=== PATIENT | male | born 1970 | race Caucasian/White ===

== ENCOUNTER 2017-08-25 09:30 | Emergency (ER) | payer OTHER ==
[~2017-08-25] VITALS: Ht 180.3 cm; Wt 135.2 kg
[~2017-08-25 09:30] MED LIST: CEPHALEXIN500 MG PO; CLINDAMYCIN HC150 MG PO; HYDROCODON-ACE1 EA10 PO; PERCOCET 5-3251 EACH PO
[2017-08-25] MEDS ORDERED: LIPITOR10 MG PO (09:46)
== END 2017-08-25 09:54 | disposition home or self-care (01) ==
LOC: ED 09:30
DX: H57.12 Ocular pain, left eye (principal); Z00.8 Encounter for other general examination

== ENCOUNTER 2019-01-15 11:50 | Inpatient (IN) | payer OTHER ==
[~2019-01-15] VITALS: Ht 180.3 cm; Wt 135.2 kg
--- OUTSIDE RECORDS SUMMARY | ~2019-01-15 | XMS | Clinical Summary ---
Demographics + + + | Address | [address] | | | [place] [address] | + + + | Home Phone | | + + + | Preferred Language | Unknown | + + + | Marital Status | Unknown | + + + | Sabianist Affiliation | Unknown | + + + | Race | Unknown | + + + | Ethnic Group | Unknown | + + + Author + + + | Author | [facility] [facility] | + + + | Organization | [facility] [facility] | + + + | Address | Unknown | + + + | Phone | Unavailable | + + + Support +--------+ +---------+ + | Name | Relationship | Address | Phone | +--------+ +---------+ + | No,One | ECON | Unknown | | +--------+ +---------+ + Care Team Providers + +------+ + | Care Ghost Writer Name | Role | Phone | + +------+ + | Allen Burnham MD | PP | | + +------+ + Allergies Not on File Current Medications Not on file Active Problems Not on file Social History + +-------+ +--------+------+ | Tobacco Use | Types | Packs/Day | Years | Date | | | | | Used | | + +-------+ +--------+------+ | Never Assessed | | | | | + +-------+ +--------+------+ + + + | Sex Assigned at | Date Recorded | | | | + + + | Not on file | | + + + Plan of Treatment Not on file Results Not on filefrom Last 3 Months Insurance + +--------+ +------+-------+ + | Payer | Benefi | Subscriber | Type | Phone | Address | | | t Plan | ID | | | | | | / | | | | | | | Group | | | | | + +--------+ +------+-------+ + | [employer] | ODS | [id number] | | | | | | HEALTH | | | | | | | PLAN | | | | | + +--------+ +------+-------+ + | MEDICAID | [place] | [id number] | | | [address] | | | N | | | | [place], [place] | | | [place] | | | | [phone] | | | SIGNWRITER | | | | | + +--------+ +------+-------+ + + +--------+ +--------+ + + | Guarantor Name | Accoun | Relation to | Date | Phone | Billing Address | | | t Type | Patient | of | | | | | | | | | | + +--------+ +--------+ + + | MARIXA DAVIS | Person | Self [birth year] | Home: | [address] | | | al/[place] | | 1971 | [phone] | [place] [address] | | | javon | | | [phone] | | + +--------+ +--------+ + +"
--- OUTSIDE RECORDS SUMMARY | ~2019-01-15 | XMS | Clinical Summary ---
Demographics + + + | Address | [address] | | | [place] [address] | + + + | Home Phone | | + + + | Preferred Language | Unknown | + + + | Marital Status | Unknown | + + + | Anabaptist Affiliation | Unknown | + + + | Race | Unknown | + + + | Ethnic Group | Unknown | + + + Author + + + | Author | [facility] [facility] [facility] | + + + | Organization | [facility] | + + + | Address | Unknown | + + + | Phone | Unavailable | + + + Support +--------+ +---------+ + | Name | Relationship | Address | Phone | +--------+ +---------+ + | No,One | ECON | Unknown | | +--------+ +---------+ + Care Team Providers + +------+ + | Care Data Center Engineer Name | Role | Phone | + [...] | [employer] | ODS | [id number] | | | | | | HEALTH | | | | | | | PLAN | | | | | + +--------+ +------+-------+ + | MEDICAID | [place] | [id number] | | | [address] | | | N | | | | [place], [place] | | | [place] | | | | [phone] | | | [employer] | | | | | + +--------+ [...] | 1971 | [phone] | [place] [address] | | | [place] | | | [phone] | | + +--------+ +--------+ + +"
[~2019-01-15 11:50] MED LIST changes: +LIPITOR10 MG PO
[2019-01-15] MEDS ORDERED: HYDROCHLOROTH12.5 MG PO (16:10)
--- NOTE | 2019-01-15 17:11 | NUR ---
Pt reports nausea, no current order for antiemetic. Voicemail left with Dr. Manzo as there was no answer. emisis bag in reach of pt, no vomiting at this time. call light and h20 in reach.
--- NOTE | 2019-01-15 17:27 | NUR ---
CALL PLACED TO ED, SPOKE WITH RUSSEL ESPAÑA WHO AGREES TO NOTIFY DR BLANDON OF NEED FOR ED BRIDGE ORDER FOR PT'S CURRENT NAUSEA.
--- NOTE | 2019-01-15 17:45 | NUR ---
PT REPORTS NASUEA HAS SUBSIDED AND ONLY CAME ON AFTER TAKING A BITE OF PINEAPPLE. . CALL LIGHT AND H2O IN REACH.
--- NOTE | 2019-01-15 18:26 | NUR ---
pt reports persisting nausea with no vomiting. PRN iv zofran 8mg administered call light and h20 in reach. Pt denies pain. Warm pack provided. Pt verbalized understanding of NPO status after miidnight.
--- NOTE | 2019-01-15 19:00 | NUR ---
CHARGE ROUNDING DONE. PATIENT APPEARS TO BE RESTING COMFORTABLY. NO NEEDS AT THIS TIME.
--- NOTE | 2019-01-15 19:31 | NUR ---
IN ROOM FOR REPORT, PT IS AWAKE IN BED AND DENIES NEEDS AT THIS TIME. CALL LIGHT IS WITHIN REACH.
--- NOTE | 2019-01-15 21:41 | NUR ---
Provided a heat pack for patient.
--- NOTE | 2019-01-15 22:20 | NUR ---
IN ROOM TO ASSESS PT AND ADMINISTER MEDICATIONS. NORCO GIVEN FOR PAIN WELL. PT REPORTS THAT HIS STOMACH "FEELS OFF" BUT DENIES NAUSEA. HE IS FLUSHED BUT AFREBRILE. RT SCROTUM/GROIN AREA IS RED AND WARM WITH A SMALL AMOUNT OF PURULENT DRAIANGE. WARM PACK IS IN PLACE AT THIS TIME. PT DENIES FURTHER NEEDS AND CALL LIGHT IS CLOSE.
--- NOTE | 2019-01-16 00:27 | NUR ---
PT IS RESTING WITH EYES CLOSED, RESPIRATIONS ARE EVEN AND NONLABORED. CALL LIGHT IS WITHIN REACH.
--- NOTE | 2019-01-16 01:00 | NUR ---
PUT NEW BAG OF IV FLUID UP AND PROVIDED WARM PACK FOR PT. HE DENIES FURTHER NEEDS. CALL LIGHT IS WITHIN REACH.
--- NOTE | 2019-01-16 01:20 | NUR ---
VITALS AND I&OS DONE AND CHARTED. INFORMED HIS RN PARAG OF NO OUTPUT FOR 0200 . BEDSIDE TABLE AND CALL LIGHT IN REACH. PT NEEDS NOTHING AT THIS TIME.
--- NOTE | 2019-01-16 02:47 | NUR ---
PT IS RESTING WITH EYES CLOSED, RESPIRATIONS ARE EVEN AND NONLABORED. CALL LIGHT IS WITHIN REACH.
--- NOTE | 2019-01-16 04:35 | NUR ---
PT IS RESTING WITH EYES CLOSED, RESPIRATIONS ARE EVEN AND NONLABORED. CALL LIGHT IS WITHIN REACH.
--- NOTE | 2019-01-16 05:51 | NUR ---
PT DENIES PAIN AT THIS TIME. ADMINISTERED ABX. NEW PAD PLACED ON GROIN WITH HEAT PAD AND PT DENIES FURTHER NEEDS. CALL LIGHT IS WITHIN REACH.
--- NOTE | 2019-01-16 07:04 | NUR ---
PT REPORTS NAUSEA BUT STATES PAIN IS UNDERCONTROL AT THIS TIME. ZOFRAN ADMINISTERED AND PT DENIES FURTHER NEEDS. CALL LIGHT IS WITHIN REACH.
--- NOTE | 2019-01-16 07:10 | NUR ---
REP[ORT RECEIVED FROM RUSSEL TUTTLE. PT RESTING ON LEFT LATERAL SIDE. CALL LIGHT IN REACH. EYES CLOSED AND RESPIRATIONS EVEN AND UNLABORED AND PT APPEARS TO BE SLEEPING COMFORTABLY.
--- NOTE | 2019-01-16 07:20 | NUR ---
PATIENT RESTING IN BED. CALL LIGHT WITHIN REACH. NO OTHER NEEDS AT THIS TIME
--- NOTE | 2019-01-16 08:12 | NUR ---
PATIENT RESTING IN BED. SETS UP BATHROOM FOR SHOWER. CALL LIGHT WITHIN REACH. NO OTHER NEEDS AT THIS TIME
--- NOTE | 2019-01-16 09:42 | NUR ---
Pt assisted up to restroom, and then on walked around nurses station. Pt tolerated well with fww and sba. Pt back to bed, assessment completed am meds were administered -see emar. Family in and verbalize willingness to learn dressing changes and were walked through dressing change process and educated on wound care. All questions answered. No concerns voiced. Call light and h20 in reach.
--- NOTE | 2019-01-16 09:44 | NUR ---
PATIENT RESTING IN BED. RN IN CHARGE IN ROOM. VITAL SIGNS AND I&O DONE. CALL LIGHT WITHIN REACH. NO OTHER NEEDS AT THIS TIME
--- NOTE | 2019-01-16 10:18 | NUR ---
Pt resting on left lateral side, assessment completed. Call light in reach. Pt denies needs/concern sand states nausea has subsided. Fresh hwp provided.
--- NOTE | 2019-01-16 11:45 | NUR ---
IN TO ASSIST DR PABON WITH WOUND IRRIGATION. PT TOLERATED WELL. CULTURES X2 SENT TO LAB. WOUND WAS IRRIGATED AND PACKED WITH STERILE GUAZE PER DR PABON WITH 4X4 GUAZE AND NETTING UNDERWEAR TO HOLD IN PLACE. PT STATES PAIN IS 3/10 TO RIGHT GROIN. ONE DOSE OF IV TORADOL ADMINISTERED IVP. NO FURTHER NEEDS/CONCERNS VOICED. CALL LIGHT AND H20 IN REACH AND MENUE PROVIDED -PT ADVANCED TO CLEAR LIQ PER .
--- NOTE | 2019-01-16 15:00 | NUR ---
ADMINISTERED SCHEDULED MEDDS. PT SLEEPING UNTIL AWOKEN FOR SCANNING. PT DENIES NEEDS.
--- NOTE | 2019-01-16 17:38 | NUR ---
PATIENT RESTING IN BED. PATIENT DID NOT VOID DURING THIS PERIOD. VITAL SIGNS AND I&O DONE.CALL LIGHT WITHIN REACH. NO OTHER NEEDS AT THIS TIME
--- NOTE | 2019-01-16 17:53 | NUR ---
Pt vomiting approx 300mls of clear brown emisis and reports releif with emisis. Phenergan 25mg administered po. Pt also reports 4/10 abd pain. pt requested and received prn po opiods -see emar. Call light and h20 in reach. Pt provided with cool wash cloth and new emisis bag no further needs/concerns voiced.
--- NOTE | 2019-01-16 18:21 | NUR ---
PT STATES "I FEEL THE SAME WHEN I FIRST GOT HERE". pT REPORTS CHILLS SWEATING, COUGHING, GENERALIZED ABD ACHING PAIN. BT'S HYPERACTIVE NONDISTENDED AND NO INCREASED PAIN TO PALPATION. PT HAS NOT VOIDED IN PAST 4HRS BUT DENIES URGE TO VOID. PT HAS LOW GRADE TEMP. PT REQUESTS CA SUPPOSITORY FOR NASUEA. DR PABON NOTIFIED OF PT'S S/SX'S AND REQUEST FOR CA ANTIEMETIC. MULTIPLE NEW TORB RECEIVED- SEE ORDERS IN [facility].
--- NOTE | 2019-01-16 20:01 | NUR ---
REPORT RECEIVED, PT AWAKE, RESTING IN BED, IV FLUIDS INFUSING PER EMAR WNL, PT STATES THAT HE IS FEELING MUCH BETTER, DENIES ANY NAUSEA AT THIS TIME, RATES HIS PAIN AT 0/10 CURRENTLY, PT AOX4, DENIES ANY NEEDS AT THIS TIME, CALL LIGHT WITHIN REACH. FALL PRECAUTIONS IN PLACE.
--- NOTE | 2019-01-16 21:19 | NUR ---
ROUNDED ON PT CHARGE. PT RESTING IN BED. CHILD NURSE DECEMBER IN ROOM. PT DENIES REQUESTS AT THIS TIME, NO COMMENTS QUESTIONS OR CONCERNS AT THIS TIME. CALL LIGHT IN REACH.
--- NOTE | 2019-01-16 22:53 | NUR ---
PT C/O 12/05 PAIN RELATED TO ABDOMEN AND SCROTUM, PT REQUESTING PRN PAIN MEDICATION, PT GIVEN PRN PAIN MEDICATION PER EMAR, PT CONTINUES TO DENY NAUSEA, IV FLUIDS/ABX INFUSING PER EMAR WNL, NO REQUESTS AT THIS TIME, CALL LIGHT WITHIN REACH. FALL PRECAUTIONS IN PLACE.
--- NOTE | 2019-01-17 | NUR ---
PO FLUIDS REMOVED FROM ROOM, PT AWAKE, RESTING IN BED, STATES THAT HE IS FEELING MUCH BETTER, DENIES ANY PAIN, DENIES ANY NAUSEA, IV FLUIDS/ABX INFUSING PER EMAR WNL, NO REQUESTS AT THIS TIME, CALL LIGHT WITHIN REACH. FALL PRECAUTIONS IN PLACE.
--- NOTE | 2019-01-17 02:30 | NUR ---
ASSESSMENT COMPLETE, SMALL AMOUNT OF BROWN/SEROUS DRAINAGE NOTED ON 4X4 BETWEEN PT'S SCROTUM AND RIGHT GROIN, PT DENIES PAIN, DENIES N/V, DENIES ANY NEEDS AT THIS TIME, IV FLUIDS INFUSING PER EMAR WNL, CALL LIGHT WITHIN REACH. FALL PRECAUTIONS IN PLACE.
--- NOTE | 2019-01-17 02:48 | NUR ---
patient requested urinal be emptied. also wanted new drainage pads.
--- NOTE | 2019-01-17 04:26 | NUR ---
PT RESTING IN BED, EYES CLOSED, BREATHS EVEN, UNLABORED, NO REQUESTS AT THIS TIME, IV FLUIDS INFUSING PER EMAR WNL, CALL LIGHT WITHIN REACH.
--- NOTE | 2019-01-17 06:02 | NUR ---
IN ROOM TO ADMIN MORNING MEDS, PT DENIES ANY C/O PAIN OR NAUSEA, PT RESTING IN BED, VSS, IV FLUIDS INFUSING PER EMAR WNL, CALL LIGHT WITHIN REACH.
--- NOTE | 2019-01-17 06:08 | NUR ---
PT AOX4 THIS SHIFT, APPROPRIATE, 1 PERSON SBA, MOSTLY INDEPENDENT IN ROOM, PT RECEIVED PRN PAIN MEDICATION X1 THIS SHIFT, NO C/O NAUSEA, NO EMESIS, REDNESS AND SWELLING IN SCROTUM HAS LESSENNED SOME THIS SHIFT, SMALL AMOUNT OF SEROUS DRAINAGE FROM SCROTUM NOTED, PT HAS BEEN NPO SINCE MIDNIGHT, TOLERATING WELL. USES CALL LIGHT APPROPRIATELY, IV FLUIDS/ABX INFUSING PER EMAR WNL. VSS.
--- NOTE | 2019-01-17 08:15 | NUR ---
PT LYING IN BED, DROWSY BUT ALERT AND ORIENTED. DENIES PAIN OR NAUSEA AT THIS TIME. RIGHT GROIN WITH MINIMAL TO NO REDNESS, INDURATION APPROX GOLF BALL SIZE. PT REPORTS MUCH IMPROVMENT IN REDNESS AND SIZE OF INFLAMMATION. SMALL AMOUNT OF PURULENT DRAINAGE NOTED. PT PLACES GAUZE IN GROIN NEEDED FOR DRAINAGE. PT OFFERED SHOWER, REFUSED AT THIS TIME. INFORMED PT THAT HIS DIET HAS BEEN ADVANCED AND HE CAN ORDER DESIRED. PT STATED HE NEEDED TO GET UP TO ATTEMPT BM. INDEPENDENT TO RESTROOM. LINENS CHANGED AT THIS TIME.
--- NOTE | 2019-01-17 10:05 | NUR ---
PT SITTING UP IN CHAIR. ORDERED BREAKFAST AND [place] WELL. DENIES NEEDS OR CONCERNS AT THIS TIME. CALL LIGHT WITHIN REACH.
--- NOTE | 2019-01-17 10:49 | NUR ---
PATIENT IN CHAIR. WARM WASHCLOTH OFFERED. BREAKFAST EATEN. CALL LIGHT IN REACH. NO FURTHER NEEDS AT THIS TIME.
--- NOTE | 2019-01-17 12:25 | NUR ---
DR. PABON PERFORMED BEDSIDE DEBRIDEMENT. PT [place] WELL. WAS MEDICATED WITH 1MG IV DILAUDID. PT CURRENTLY UP IN ROOM INDEPENDENTLY. DENIES PAIN OR OTHER CONCERNS. GIVEN SOME LEMON QUILEUTE SODA PER REQUEST. RIGHT GROIN AREA PACKED AND DRESSED WITH ABD, STRETCH UNDERWEAR ON. CALL LIGHT WITHIN REACH.
--- NOTE | 2019-01-17 14:32 | NUR ---
PT WAS NOT SURE HE WANTED ANYONE IN HIS RM, I IDENTIFIED MYSELF AND HE VERY QUICKLY IDENTIFIED HIS RENNY, AND ASSUMED I COULD NOT BE OF ASSISTANCE AND INFORMED ME THAT MY SERVICES WERE NOT NEEDED. I GAVE A BLESSING AND WILL FOLLOW NEEDED
--- NOTE | 2019-01-17 15:04 | NUR ---
PT INDEPENDENT IN ROOM. IN BED AT THIS TIME ATTEMPTING TO TAKE A NAP. DENIES PAIN OR OTHER NEEDS OR CONCERNS AT THIS TIME. CALL LIGHT WITHIN REACH.
--- NOTE | 2019-01-17 20:03 | NUR ---
RECEIVED REPORT FROM DAY SHIFT RN. PATIENT IS RESTING IN BED. PATIENT DENIES ANY NEEDS A THIS TIME. CALL LIGHT IN REACH.
--- NOTE | 2019-01-17 22:00 | NUR ---
PATIENT ASSESEMENT COMPLETED. PATIENTS EVENING MEDICATIONS GIVEN PER ORDER. PATIENT RATES PAIN AT A 4/10. PATIENT GIVEN PRN PAIN MEDICATION PER ORDER. PATIENTS IV INFUSING PER ORDER. PATIENT HAS MESH UNDERWEAR, PACKING, AND ABD IN PLACE. THERE IS A MODERATES AMOUNT OF SEROSANGUINOUS DRAINAGE. ABD REPLACED. SANDWICH BOX PROVIDED. PATIENT DNEIES ANY FURTHER NEEDS AT THIS TIME. CALL LIGHTIN REACH.
--- NOTE | 2019-01-17 22:19 | NUR ---
V/S AND I&O TAKEN AND RECORDED. ICE WATER REFILLED. REGULAR CHILKOOT DRINK GIVEN PER PATIENT.
--- NOTE | 2019-01-18 00:03 | NUR ---
PATIENT IS RESTING IN BED WITH EYES CLOSED, RR 17. CALL LIGHT IN REACH.
--- NOTE | 2019-01-18 01:55 | NUR ---
PATIENT IS RESTING IN BED WITH EYES CLOSED, RR 17. CALL LIGHT IN REACH.
--- NOTE | 2019-01-18 02:48 | NUR ---
PATIENTS SCHEDULED MEDICATION GIVEN PER ORDER. PATIENT HAS IV INFUSING PER ORDER. PATIENT DENIES ANY PAIN. ASSESMENT COMPLETED. PATIENT DENIES ANY NEEDS. ABCESS CONTINUES TO DRAIN SEROSANGUINOUS FLUIDS. CALL LIGHT IN REACH.
--- NOTE | 2019-01-18 04:49 | NUR ---
PATIENT RESTED WELL THROUGHOUT THE SHIFT. PATIENT IS ON A REGULAR DIET, TOELRATING WELL, NO COMPLAINTS OF NAUSEA NOTED. PATIENT IS INDEPENDENT IN THE ROOM. PATIENT HAS MESH UNDERWEAR IN PLACE W/ABD OVER ABCESS SITE. SITE HAS A MODERATE AMOUNT OF SEROSANGUNOUS DRAINAGE. PATIENT IS ON CROPLET PRECAUTIONS. PATIENT IS AAOX3 AND USES CALL LIGHT APPROPRIATELY.
--- NOTE | 2019-01-18 06:28 | NUR ---
PATIENT GIVEN MORNING MEDICATIONS PER ORDER. PATIENT COMPLAINED OF NAUSE 15 MINUTES AFTER POABX GIVEN. PATIENT GIVEN PRN NAUSEA MEDICATION PER ORDER. PATIENT DENIES ANY NEEDS AT THIS TIME. CALL LIGHT IN REACH.
--- NOTE | 2019-01-18 07:31 | NUR ---
REPORT RECEIVED FROM RUSSEL MIKE. PT SITTING UP ON EDGE OF BED. PT REPORTS 1/10 PAIN AND DENIES NEED FOR PAIN MEDICATION AT THIS TIME. PT DENIES NAUSEA AND IS GOING TO TRY A GRANOLA BAR BEFORE BREAKFAST. PT DENIES ADDITIONAL REQUESTS OR COMPLAINTS AT THIS TIME. CALL LIGHT WITHIN REACH.
--- NOTE | 2019-01-18 08:39 | NUR ---
PATIENT IND. AND WALKING AROUND HALLWAY.
--- NOTE | 2019-01-18 09:40 | NUR ---
MED REC COMPLETE
--- NOTE | 2019-01-18 09:45 | NUR ---
MORNING ASSESSMENT AND MEDICATIONS DUE. THIS RN TO BED SIDE. SENIOR PHP WEB DEVELOPERBYRON PRESENT DISCUSSING PLAN OF CARE. DISCHARGE ORDERS IN PLACE. DRESSING CHANGE TO BE DONE BY BYRON GOODE. PT AGITATED. PT STATES "I JUST WANT TO KNOW WHAT TO DO TO GET YOU GUYS TO FUCKING LET ME GO, I'LL GET IN MY TRUCK AND DRIVE MYSELF HOME." EDUCATION DONE WITH PT. PT VERBALIZES UNDERSTANDING AND STATES HE WILL GET HIS MOM TO PICK HIM UP AND STAY FOR THE DRESSING CHANGE. PT TRIES A FEW BITES OF BREAKFAST AND REPORTS NAUSEA. SEE MAR FOR MEDICATION GIVEN. PT REPORTS 2/10 PAIN (SEE MAR FOR MEDICATIONS GIVEN). ASSESSMENT DONE. WHITE/YELLOW DRAINAGE NOTED FROM SCROTUM. PT STATES "I PUT NEW GAUZE ON BECAUSE THE OLD ONE FELL IN THE TOILET." RUSSEL MATTHEWS TO BEDSIDE FOR DRESSING CHANGE. BED RAILS UP. CALL LIGHT WITHIN REACH.
[2019-01-18] MEDS ORDERED: ULTRAM50 MG PO (09:53)
[2019-01-18] MEDS ORDERED: BACTRIM DS TAB1 EACH PO (09:54)
--- NOTE | 2019-01-18 10:15 | NUR ---
THIS RN PRESENT FOR DRESSING CHANGE. PT REPORTS NEW "HARDNESS" ABOVE SCROTAL AREA IN LOWER ABDOMEN/INGUINAL AREA. AREA PALPATED AND NOTED TO BE FIRM. PT HAS INCREASED PAIN WITH DRESSING CHANGE UP TO 07/07. IV MORPHINE GIVEN. TIME GIVEN TO ALLOW MEDICINES TO TAKE AFFECT. RUSSEL MATTHEWS TO RESUME DRESSING CHANGE. PT TALKING ON PHONE. CALL LIGHT WITHIN REACH. BED RAILS UP.
--- NOTE | 2019-01-18 10:34 | NUR ---
TALKED TO DR PABON ON THE PHONE AND TOOK VERBAL ORDER TO DISCHARGE TODAY, SCRIPT FOR TRAMADOL, BACTRIM, DAILY PACKING\DRESSING CHANGES IN DAY SURGERY. HE IS TO SUPERVISOR EXTRUDING DEPARTMENT SCRIPT 1ST THING TOMORROW MORNING AT DR PABON OFFICE FOR PO DILAUDID TO TAKE PRIOR TO DRESSING CHANGES. ALSO 1MG DILAUIDID IV TO USE FOR DRESSING CHANGE TODAY. PT HAS ALSO BEEN CUSSING AT RUSSEL MADRIGAL, SO I AM ASSUMING CARE AND WILL TALK TO PT ABOUT APPROPRIATE BEHAVIOR WITH STAFF.
--- NOTE | 2019-01-18 11:46 | NUR ---
PT EMPHASIZED "NO MANNEQUIN MOLD MAKER VISIT". WILL FOLLOW NEEDED
== END 2019-01-18 11:12 | disposition home or self-care (01) | DRG 728 ==
LOC: ED 11:50 → MS 11:53
PROVIDERS: ADMIT Urology
PROC: 0V95XZZ Drainage of Scrotum, External Approach (ICD-10-PCS; principal; 2019-01-17)
DX: N49.2 Inflammatory disorders of scrotum (principal); I10 Essential (primary) hypertension; E66.9 Obesity, unspecified; Z87.891 Personal history of nicotine dependence; Z88.0 Allergy status to penicillin; Z79.899 Other long term (current) drug therapy; Z68.38 Body mass index [BMI] 38.0-38.9, adult
CPT/HCPCS: 36415; 71046; 72193; 80053; 81001; 85025; 87502; 96361; 96365; 96366; 96376; 99284-25; G0378; J1170; J1885; J2270; J2405; J2543; J7030; J7060; Q9967

== ENCOUNTER 2021-10-07 13:45 | Emergency (ER) | payer OTHER ==
[~2021-10-07] VITALS: Ht 180.3 cm; Wt 142.9 kg
[~2021-10-07 13:45] MED LIST changes: +BACTRIM DS TAB1 EACH PO; +HYDROCHLOROTH12.5 MG PO; +ULTRAM50 MG PO
[2021-10-07] MEDS ORDERED: IRBESARTAN-HCT1 EACH PO (13:54)
[2021-10-07] MEDS ORDERED: ROSUVASTATIN CA20 MG PO (13:55)
--- NOTE | 2021-10-07 20:45 | EKG ---
[facility] [address] [facility] [place], [place] [address] Signed Normal sinus rhythm Minimal voltage criteria for LVH, may be normal variant ( R in aVL ) T wave abnormality, consider lateral ischemia Abnormal ECG No previous ECGs available Confirmed by CHANDRIKA MARTEL DO ([id number]) on 10/07/2021 8:45:31 PM Electronically Signed By: CHANDRIKA MARTEL DO 10/07/212044 PATIENT NAME: LONNIEJOSEMARIXA Electrocardiogram DATE OF : 74 PHYSICIAN: CHANDRIKA MARTEL DO REPORT #: [id number] REPORT IS CONFIDENTIAL AND NOT TO BE RELEASED WITHOUT AUTHORIZATION
== END 2021-10-07 15:02 | disposition home or self-care (01) ==
LOC: ED 13:45
DX: R07.9 Chest pain, unspecified (principal); I10 Essential (primary) hypertension; Z87.891 Personal history of nicotine dependence; Z88.0 Allergy status to penicillin; Z79.899 Other long term (current) drug therapy
CPT/HCPCS: 71045; 80053; 83690; 83735; 84484; 85025; 93005; 93010; 99285-25

== ENCOUNTER 2021-12-31 07:32 | Day surgery (SDC) | payer BC ==
[~2021-12-31] VITALS: Ht 180.3 cm; Wt 149.5 kg
[~2021-12-31 07:32] MED LIST changes: +IRBESARTAN-HCT1 EACH PO; +ROSUVASTATIN CA20 MG PO; +TUMS200 MG PO
--- NOTE | 2021-12-31 09:04 | NUR ---
12/31/21 0904 Beatriz Schwarz 0859-PATIENT ARRIVED TO PACU ON 2L NC RR EVEN. PATIENT AWAKE DENIES PAIN OR NAUSEA. ABDOMEN ROUND AND SOFT ENOCURAGED TO PASS GAS. IVF INFUSING. HOB ELEVATED 0904-PATIENT SLEEPING 2L NC RR EVEN. 94%
--- NOTE | 2021-12-31 09:15 | NUR ---
both nares swabbed for covid-19 without complication. sample taken to lab.
--- NOTE | 2022-01-01 08:08 | OR ---
[facility] [address] [place], [place] [address] Signed DATE OF OPERATION: 12/31/2021 SURGEON: Sherwin Washburn MD PREOPERATIVE DIAGNOSES: 1. 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 2. History of benign polyp at age 25. 3. Change in bowel habits with increased frequency of stool and decreased caliber, improved with Metamucil. 4. Hemorrhoids. 5. Father with colonic polyps, age 46. 6. Maternal grandfather with colon cancer, age 76. POSTOPERATIVE DIAGNOSES: 1. A 5 mm polyp at 6 cm. 2. A 5 mm polyp at 45 cm. 3. A 5 mm polyp at hepatic flexure. 4. Multiple 2-3 mm rectal polyps. 5. [id number] internal hemorrhoids. PROCEDURE: Colonoscopy with hot biopsy. ESTIMATED BLOOD LOSS: None. INDICATIONS: Marixa is a 51-year-old gentleman asked to see me for a colonoscopy. We know his father had colonic polyps at age 46. His maternal grandfather had colon cancer at age 76. Marixa had anal condyloma treated in his 20s. He follows up with his real estate site analyst on an annual basis. He also had a change in bowel habits with a decreased caliber of stool, but increased frequency of the stool, that is improved with his Metamucil. He said he has hemorrhoids. He had a colonoscopy with a benign polyp removed at age 25. In the office, I had given him a pamphlet on colonoscopy. He recalls the test quite well. There is risk including, but not limited to gas bloating, crampy abdominal pain, bleeding, perforation requiring surgery, and missed diagnosis. We also reviewed the written instructions for bowel prep line by line. He also recalls the need for IV conscious sedation. He told us this morning that he smokes marijuana on a daily basis. We could see the metabolize his Versed and fentanyl very quickly. He had expressed understanding and wished to proceed. Electronically Signed By: SHERWIN WASHBURN MD 01/01/22 0808 PATIENT NAME: MARIXA DAVIS OPERATIVE REPORT DATE OF : 74 REPORT #: [id number] PHYSICIAN: SHERWIN WASHBURN MD PCP: ALLEN ARCHER REPORT IS CONFIDENTIAL AND NOT TO BE RELEASED WITHOUT AUTHORIZATION [facility] [address] [place], [place] [address] Signed PROCEDURE NOTE: Marixa was taken in the endoscopy suite, given a total of 10 mg of Versed and 200 mcg of fentanyl to cover the case. Even then he was frequently awake and talking to us and awake during the retroflexion of scope in the rectum. A digital rectal exam was performed and he does have some scarring around the anus for treatment of his anal condyloma. 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 No obvious condyloma at this time. Good sphincter tone. Prostate was not particularly concerning. The adult colonoscope had been introduced and advanced under direct visualization of camera into the cecum itself without much difficulty. His prep was quite excellent. We could easily see the appendiceal orifice and the ileocecal valve. The scope was then slowly withdrawn. The above-mentioned polyps were easily removed with the help of hot biopsy forceps. We did not see any diverticulosis. In the rectum, he had multiple tiny hyperplastic appearing polyps and we simply cauterized those. Upon retroflexion of scope, we really do not see much in the way of internal hemorrhoids, they were quite minimal. After this, the gas was suctioned out, the colonoscope removed, Marixa tolerated the procedure quite well. RECOMMENDATIONS: I will see Marixa back in my office in 7 to 14 days to review his results. I suspect he will stay on the 5-year rotation. Sherwin Washburn MD ALB/MODL /[id number] cc: Allen Washburn MD Patient's Chart Copies: ALLEN ARCHER Electronically Signed By: SHERWIN WASHBURN MD 01/01/22 0808 PATIENT NAME: MARIXA DAVIS OPERATIVE REPORT DATE OF : 74 REPORT #: [id number] PHYSICIAN: SHERWIN WASHBURN MD PCP: ALLEN ARCHER REPORT IS CONFIDENTIAL AND NOT TO BE RELEASED WITHOUT AUTHORIZATION [facility] [address] [place], [place] [address] Signed SHERWIN WASHBURN MD ~ Electronically Signed By: SHERWIN WASHBURN MD 01/01/22 0808 PATIENT NAME: RYANMARIXA ELYSIA OPERATIVE REPORT DATE OF : 74 REPORT #: [id number] PHYSICIAN: SHERWIN WASHBURN MD PCP: ALLEN ARCHER REPORT IS CONFIDENTIAL AND NOT TO BE RELEASED WITHOUT AUTHORIZATION
--- NOTE | 2022-01-01 13:13 | PATH ---
[facility] [address] [facility] [place] [address] Signed SPECIMEN(S): A POLYP AT 6 CM SPECIMEN(S): B POLYP AT 45 CM SPECIMEN(S): C HEPATIC FLEXURE POLYP SPECIMEN SOURCE: A. POLYP AT 6 CM B. POLYP AT 45 CM C. HEPATIC FLEXURE POLYP CLINICAL HISTORY: Personal history of colon polyps, family history of colon cancer. FINAL PATHOLOGIC DIAGNOSIS: A. Colon, 6 cm, polypectomy: - Hyperplastic polyp. B. Colon, 45 cm, polypectomy: - Tubular adenoma. C. Colon, hepatic flexure, polypectomy: - Tubular adenoma. BRP:[facility]:C2NR MICROSCOPIC EXAMINATION: Histologic sections of all submitted blocks are examined by light microscopy. These findings, together with the gross examination, support the pathologic diagnosis. GROSS DESCRIPTION: Three specimens are received in three containers, labeled "RF." A. The specimen, labeled "RF," and designated on the requisition "polyp at 6 cm," is received in formalin and consists of one blue soft tissue fragment that measures 0.3 cm in greatest dimension. The specimen is entirely submitted in cassette (A1). B. The specimen, labeled "RF," and designated on the requisition "polyp at 45 cm," is received in formalin and consists of two blue soft tissue fragments that measure 0.3 cm in greatest dimension. The specimen is entirely submitted in cassette (B1). C. The specimen, labeled "RF," and designated on the requisition "hepatic flexure," is received in formalin and consists of two blue soft tissue fragments that measure 0.2 to 0.3 cm in greatest dimension. The specimen is entirely submitted in cassette (C1). AT (under the direct supervision of a pathologist) PATIENT NAME: MARIXA DAVIS PATHOLOGY DATE OF : 74 REPORT #: [id number] PHYSICIAN: LAKISHA LAWSON PCP: RENEE ARCHER REPORT IS CONFIDENTIAL AND NOT TO BE RELEASED WITHOUT AUTHORIZATION [facility] [address] [facility] [place], [place] [address] Signed The Gross Description was prepared using a voice recognition system. The report was reviewed for accuracy; however, sound-alike word errors, addition and/or deletions may occur. If there is any question about this report, please contact Client Services. PERFORMING LABORATORY: The technical component was performed by [employer], [address] [place] [id number] (CLIA# [id number]). The professional interpretation was performed by [facility], [facility], [facility] [place] [address] (CLIA#: [id number]). Diagnostician: Sam Roberson MD Pathologist Electronically Signed 01/01/2022 Copies: ~ PATIENT NAME: MARIXA DAVIS PATHOLOGY DATE OF : 74 REPORT #: [id number] PHYSICIAN: LAKISHA PATHOLOGY PCP: RENEE ARCHER REPORT IS CONFIDENTIAL AND NOT TO BE RELEASED WITHOUT AUTHORIZATION
== END 2021-12-31 09:45 | disposition home or self-care (01) ==
LOC: DS 07:32 → OPS 07:32 → DS 08:15 → OPS 09:45
PROVIDERS: ATTEND Colon & Rectal Surgery
PROC: 0DBL8ZX Excision of Transverse Colon, Via Natural or Artificial Opening Endoscopic, Diagnostic (ICD-10-PCS; principal; 2021-12-31 08:15)
DX: D12.3 Benign neoplasm of transverse colon (principal); R19.4 Change in bowel habit; K64.8 Other hemorrhoids; I10 Essential (primary) hypertension; Z87.891 Personal history of nicotine dependence; Z88.0 Allergy status to penicillin; Z88.8 Allergy status to other drugs, medicaments and biological substances; Z80.0 Family history of malignant neoplasm of digestive organs
CPT/HCPCS: 99153; C9803; G0500; J2250; J3010; J7121